=== PATIENT | male | born 1995 | race Caucasian/White ===

== ENCOUNTER 2017-11-01 16:39 | Inpatient (IN) | payer OTHER ==
[~2017-11-01] VITALS: Ht 175.3 cm; Wt 77.0 kg
[2017-11-01] MEDS ORDERED: IOHEXOL 350 MG/ML 10 ML VIAL (for RAD DIAG) IVCONTRAST ONE (16:40)
[2017-11-01 16:45] VITALS: O2SAT 97
[2017-11-01] MEDS ORDERED: MORPHINE SULFATE 4 MG/ML INJ ONE (16:48)
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
[2017-11-01 17:15] VITALS: RESP 18; O2SAT 98
[2017-11-01 17:15] LABS: AUTOMATED NEUTROPHIL # 7.5 TH/MM3 (1.8-7.7); BASOPHIL % 0.3 % (0.0-2.0); EOSINOPHIL # 0.2 TH/MM3 (0-0.4); EOSINOPHIL % 1.6 % (0.0-4.0); HEMATOCRIT 41.9 % (39.0-51.0); HEMOGLOBIN 14.9 GM/DL (13.0-17.0); LYMPH % 16.6 % (9.0-44.0); LYMPHOCYTE # 1.6 TH/MM3 (1.0-4.8); MEAN CELL VOLUME 90.2 FL (80.0-100.0); MEAN CORPUSCULAR HGB CONC 35.5 % (32.0-36.0); MEAN PLATELET VOLUME 8.5 FL (7.0-11.0); MONO % 5.8 % (0.0-8.0); MONOCYTE # 0.6 TH/MM3 (0-0.9); NEUT % 75.7 % (16.0-70.0); PLATELET COUNT 189 TH/MM3 (150-450); RED BLOOD COUNT 4.64 MIL/MM3 (4.50-5.90); WHITE BLOOD COUNT 9.9 TH/MM3 (4.0-11.0)
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
[2017-11-01 17:30] LABS: INTERNATIONAL NORMALIZED RATIO 1.1 RATIO; PROTHROMBIN TIME - PATIENT 10.9 SEC (9.8-11.6)
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
[2017-11-01 17:56] VITALS: BP 143/69; PULSE 74; RESP 16; TEMP 97.8; O2SAT 98
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
[2017-11-01 18:30] VITALS: BP 128/67; PULSE 81; RESP 17; TEMP 97.8; O2SAT 99
[2017-11-01] MEDS ORDERED: MAGNESIUM HYDROXIDE SUSP 30 ML CUP PO PRN (18:30)
[2017-11-01] MEDS ORDERED: ONDANSETRON HCL 4 MG/2 ML VIAL IV PUSH PRN (18:30)
[2017-11-01] MEDS ORDERED: ACETAMINOPHEN/HYDROcodone 325 MG/5 MG TAB PO PRN ×2 (18:30)
[2017-11-01] MEDS ORDERED: ENALAPRILAT 1.25 MG/ML VIAL IV PUSH PRN (18:30)
[2017-11-01] MEDS ORDERED: SODIUM CHLORIDE 0.9% FLUSH 10 ML FLUSH IV FLUSH PRN (18:30)
[2017-11-01] MEDS: SODIUM CHLOR 0.9% 1000 ML INJ 1,000 ML IV SCH (18:59)
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
[2017-11-01] MEDS: HYDROmorphone HCL PF 2 MG/ML VIAL IV PUSH PRN ×2 (19:04→22:17)
[2017-11-01] MEDS ORDERED: POTASSIUM CHLORIDE 20 MEQ CONTROLLED RELEASE TAB PO ONE (19:30)
[2017-11-01] MEDS: PANTOPRAZOLE SODIUM 40 MG VIAL IVP SCH (22:16)
[2017-11-01 22:42] VITALS: BP 139/64; PULSE 75; RESP 18; TEMP 99.2; O2SAT 94
[2017-11-01] MEDS: MULTIVITAMIN INJ 10 ML, THIAMINE INJ 100 MG, FOLIC ACID INJ 1 MG in SODIUM CHLORID 0.9%... IV SCH (22:48)
[2017-11-02] MEDS: HYDROmorphone HCL PF 2 MG/ML VIAL IV PUSH PRN ×3 (01:16→08:07)
[2017-11-02] MEDS ORDERED: SODIUM CHLORID 0.9% 500 ML IV PRN ×2 (04:15→13:30)
[2017-11-02] MEDS ORDERED: CHLORHEXIDINE GLUCONATE 2 % 1 PACK (2 CLOTHS) TOPICAL PRN ×2 (04:15→13:30)
[2017-11-02] MEDS ORDERED: POVIDONE IODINE 5% (ANTISEPSIS KIT) 4 APPLICATIONS EACH NARE PRN ×2 (04:15→13:30)
[2017-11-02] MEDS ORDERED: LACTATED RINGER'S 1000 ML IV PRN ×2 (04:15→13:30)
[2017-11-02] MEDS ORDERED: METOPROLOL TARTRATE 25 MG TAB PO PRN ×2 (04:15→13:30)
[2017-11-02] MEDS: SODIUM CHLOR 0.9% 1000 ML INJ 1,000 ML IV SCH (04:23)
[2017-11-02 04:43] LABS: BASOPHIL % 0.3 % (0.0-2.0); EOSINOPHIL # 0.1 TH/MM3 (0-0.4); EOSINOPHIL % 0.8 % (0.0-4.0); HEMOGLOBIN 12.9 GM/DL (13.0-17.0); LYMPH % 15.3 % (9.0-44.0); MEAN CELL VOLUME 90.4 FL (80.0-100.0); MEAN CORPUSCULAR HEMOGLOBIN 31.4 PG (27.0-34.0); MEAN CORPUSCULAR HGB CONC 34.7 % (32.0-36.0); MEAN PLATELET VOLUME 8.8 FL (7.0-11.0); MONO % 10.7 % (0.0-8.0); MONOCYTE # 0.7 TH/MM3 (0-0.9); NEUT % 72.9 % (16.0-70.0); PLATELET COUNT 171 TH/MM3 (150-450); WHITE BLOOD COUNT 6.8 TH/MM3 (4.0-11.0)
[2017-11-02 05:02] VITALS: BP 129/60; PULSE 72; RESP 18; TEMP 98.6; O2SAT 95
[2017-11-02 05:04] LABS: ALBUMIN 3.5 GM/DL (3.4-5.0); AST (GOT) 19 U/L (15-37); BICARBONATE 25.9 MEQ/L (21.0-32.0); BLOOD UREA NITROGEN 11 MG/DL (7-18); CHLORIDE 107 MEQ/L (98-107); CREATININE 0.82 MG/DL (0.60-1.30); GLOMERULAR FILTRATION RATE 81 ML/MIN (>89); GLUCOSE,RANDOM 102 MG/DL (74-106); SODIUM (NA) 139 MEQ/L (136-145)
[2017-11-02 05:08] LABS: ALKALINE PHOSPHATASE 51 U/L (45-117); ALT (GPT) 20 U/L (12-78); TOTAL BILIRUBIN ADULT 0.9 MG/DL (0.2-1.0); TOTAL PROTEIN 6.1 GM/DL (6.4-8.2)
[2017-11-02 07:47] VITALS: BP 140/62; PULSE 60; RESP 20; TEMP 99; O2SAT 97
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
[2017-11-02] MEDS ORDERED: PROPOFOL 200 MG/20 ML AMP IV ONE (12:00)
[2017-11-02] MEDS ORDERED: GLYCOPYRROLATE 1 MG/5 ML SYRINGE IV PUSH ONE (12:00)
[2017-11-02] MEDS ORDERED: NEOSTIGMINE 5 MG/5 ML SYRINGE IV PUSH ONE (12:00)
[2017-11-02] MEDS ORDERED: DEXAMETHASONE SOD PHOS 4 MG/ML VIAL IV ONE (12:00)
[2017-11-02] MEDS ORDERED: LIDOCAINE HCL 1% PF 5 ML SYRINGE OTHER ONE (12:00)
[2017-11-02] MEDS ORDERED: LACTATED RINGER'S 1000 ML INJ 1,000 ML IV ONE (12:00)
[2017-11-02] MEDS ORDERED: ROCURONIUM INJ 50 MG/5 ML SYRINGE IV PUSH ONE (12:00)
[2017-11-02] MEDS ORDERED: ONDANSETRON HCL 4 MG/2 ML VIAL IV ONE (12:00)
[2017-11-02] MEDS ORDERED: GENTAMICIN SULFATE 80 MG/2 ML VIAL ONE (13:57)
[2017-11-02] MEDS ORDERED: VANCOMYCIN HCL 1000 MG VIAL ONE (15:03)
[2017-11-02] MEDS ORDERED: ceFAZolin INJ 1,000 MG VIAL ONE (15:03)
[2017-11-02] MEDS ORDERED: diphenhydrAMINE HCL 25 MG CAP PO PRN (16:00)
--- NOTE | 2017-11-02 16:02 | PD.OP ---
cc: Lefty Lora MD Operative Report Date of Surgery: Nov 02, 2017 Preoperative Diagnosis: Displaced right femoral shaft fracture Postoperative Diagnosis: Procedure: Right femur reduction and nail fixation Anesthesia: Gen. Surgeon: Lefty Lora Musculoskeletal Physician(s): BARTOLO Amanda PA-C The surgical procedure was assisted by my physician assistant housekeeping manager. My P.A. presence was necessary throughout this case for the manipulation and positioning of the surgical extremity. My P.A. was assisting me throughout the duration of this procedure. The skill set of a physician assistant housekeeping manager was medically necessary to complete this procedure. During the surgical case the rn surgical was working at the back table and the physician assistant housekeeping manager was directly assisting me. Operation and Findings: Plan of activity: 50% weightbearing right leg Patient was seen and evaluated preoperatively. The patient has significant leg pain from right femur shaft fracture. The risk and benefits of surgery were discussed in depth with the patient to include bleeding, infection, nonunion, malunion, need for hip replacement, painful hardware, as well as medical competitions including blood clots, stroke, heart attack, and . Informed consent was obtained. Operative site was marked. Patient was brought to the operating room and placed on Nathanael table. IV sedation was administered by anesthesiologist. Timeout procedure was performed. Hip and leg were prepped with alcohol followed by Hibiclens and draped in the usual sterile fashion. IV antibiotics were given prior to incision. Procedure began with reduction of fracture. Traction was applied. The leg was manipulated to achieve reduction. Excellent reduction was achieved. Fluoroscopy was used to confirm reduction. A two inch incision was made over the anterior knee. A medial arthrotomy was created. Guidepin was placed into the distal femur and advanced into the femoral canal. Fluoroscopy confirmed appropriate guidepin placement. A opening reamer was placed over the guidepin. A long ball tipped guide pin was now placed down the femoral canal into the center of the proximal femur. The nail length was now measured. Fluoroscopy confirmed appropriate guidepin placement. Flexible reamers were now passed over the guidepin to ream the intramedullary canal. The Synthes 11 mm x 340 mm femoral nail was attached to the insertion handle. Nail was now placed over the guidepin into the femoral canal. Fluoroscopy confirmed appropriate nail placement. A small percutaneous incisions were made over the lateral thigh. Cannulas were placed through the insertion handle down to the femur. Using the insertion handle as a guide the distal interlocking screw holes were predrilled and screw lengths were measured. Appropriate length screws was now placed. Next, using perfect [place] technique two proximal interlocking screws were placed. Screw holes were predrilled and screw lengths were measured. Final fluoroscopy revealed well aligned fracture with well-placed hardware. Incision was closed with 0 Vicryl, 3-0 Vicryl and jo. Sterile dressings were applied. Patient was awakened and transferred to recovery room. Lefty Lora MD Nov 02, 2017 16:02
[2017-11-02] MEDS ORDERED: DO NOT ADM ANY ANTICOAGULANT DRUGS PRN (16:22)
[2017-11-02] MEDS ORDERED: MIDAZOLAM HCL 2 MG/2 ML VIAL ONE (16:31)
[2017-11-02] MEDS: LACTATED RINGER'S 1000 ML INJ 1,000 ML IV SCH (16:47)
[2017-11-02] MEDS ORDERED: ERGOCALCIFEROL (VIT D2) 50,000 UNIT CAP PO SCH (17:00)
[2017-11-02] MEDS ORDERED: *morphine SULFATE 4 MG/ML PERIprocedure ONLY ONE (17:53)
[2017-11-02] MEDS: CALCIUM/VITAMIN D 250 MG/125 U TAB PO SCH (18:00)
--- NOTE | 2017-11-02 18:16 | RADRPT ---
EXAM DATE/TIME: 11/02/2017 15:50 [facility] COMPARISON: FEMUR RIGHT (AP & LAT/2VWS), November 01, 2017, 16:41. INDICATIONS : ORIF of the right femur. MEDICAL HISTORY : Non-responsive SURGICAL HISTORY : Non-responsive ENCOUNTER: Initial ACUITY: 2 days PAIN SCORE: Non-responsive. LOCATION: Right femur FINDINGS: 8 images are recorded digitally in the operating room using C-arm during placement of an intramedulla ry right femur with proximal and distal intercalated screws. CONCLUSION: Intraoperative images. Gunnar Chu MD on November 02, 2017 at 18:14 Board Certified Radiologist. This report was verified electronically.
[2017-11-02] MEDS: PANTOPRAZOLE SODIUM 40 MG VIAL IVP SCH (19:29)
[2017-11-02 20:05] VITALS: BP 151/67; PULSE 82; RESP 16; TEMP 99; O2SAT 96
[2017-11-02] MEDS: MULTIVITAMIN INJ 10 ML, THIAMINE INJ 100 MG, FOLIC ACID INJ 1 MG in SODIUM CHLORID 0.9%... IV SCH (21:29)
[2017-11-02] MEDS: ACETAMINOPHEN/HYDROcodone 325 MG/10 MG TAB PO PRN (22:14)
[2017-11-02] MEDS: ceFAZolin 2 GM PREMIX 50 ML IV SCH (23:58)
[2017-11-03 00:40] VITALS: BP 131/59; PULSE 84; RESP 16; TEMP 98.4; O2SAT 98
[2017-11-03] MEDS: LACTATED RINGER'S 1000 ML INJ 1,000 ML IV SCH ×3 (02:00→20:09)
[2017-11-03] MEDS: VANCOMYCIN INJ 1,000 MG in SODIUM CHLOR 0.9% 250 ML INJ 250 ML IV SCH ×2 (03:11→14:45)
[2017-11-03 03:50] VITALS: BP 125/58; PULSE 76; RESP 16; TEMP 98.5; O2SAT 98
[2017-11-03] MEDS: ENOXAPARIN SODIUM 40 MG/0.4 ML SYRINGE SQ SCH (05:20)
[2017-11-03] MEDS: ceFAZolin 2 GM PREMIX 50 ML IV SCH ×2 (05:20→13:36)
[2017-11-03] MEDS: ACETAMINOPHEN/HYDROcodone 325 MG/10 MG TAB PO PRN ×4 (05:20→18:01)
--- NOTE | 2017-11-03 06:43 | PD.ORT.PN ---
Subjective Subjective Remarks POD 1 s/p IMN right femur paitent states he is doing well. reports no pain at all and feels good Objective Vitals Vital Signs Date Time Temp Pulse Resp B/P (MAP) Pulse Ox O2 Delivery O2 Flow Rate FiO2 11/03/17 04:55 21 11/03/17 03:50 98.5 76 16 125/58 (80) 98 11/03/17 00:40 98.4 84 16 131/59 (83) 98 11/02/17 20:05 99.0 82 16 151/67 (95) 96 11/02/17 17:45 98.5 61 22 139/66 (90) 97 Room Air 11/02/17 17:00 61 22 134/55 (81) 94 Room Air 11/02/17 16:45 70 22 135/60 (85) 94 Room Air 11/02/17 16:30 60 22 125/57 (79) 97 Room Air 11/02/17 16:23 98.5 65 20 133/63 (86) 99 Nasal Cannula 2 11/02/17 11:58 20 11/02/17 07:47 99.0 60 20 140/62 (88) 97 I/O 11/02/17 11/02/17 11/02/17 11/03/17 11/03/17 11/03/17 07:00 15:00 23:00 07:00 15:00 23:00 Intake Total 1511.2 ml 1130 ml 50 ml Output Total 500 ml 100 ml Balance 1511.2 ml -500 ml 1030 ml 50 ml Intake Oral 0 ml 30 ml IV Total 1511.2 ml 100 ml 50 ml Other 1000 ml Output Urine Total 500 ml Estimated Blood Loss 100 ml # Voids 3 0 # Bowel Movements 0 Result Diagram: 11/02/17 0410 11/02/17 0410 Imaging Last 24 hours Impressions Thoracic Spine CT 11/01/171648 Signed Impressions: Service Date/Time: Wednesday, November 01, 2017 17:02 - CONCLUSION: Normal examination. Gunnar Crandall Jr., MD Pelvis X-Ray 11/01/171648 Signed Impressions: Service Date/Time: Wednesday, November 01, 2017 16:41 - CONCLUSION: No fracture. Fernando Charles MD Lumbar Spine CT 11/01/171648 Signed Impressions: Service Date/Time: Wednesday, November 01, 2017 17:02 - CONCLUSION: Normal examination. Gunnar Crandall Jr., MD Head CT 11/01/171648 Signed Impressions: Service Date/Time: Wednesday, November 01, 2017 16:56 - CONCLUSION: No acute disease. Gunnar Crandall Jr., MD Chest X-Ray 11/01/171648 Signed Impressions: Service Date/Time: Wednesday, November 01, 2017 16:41 - CONCLUSION: Limited study. No acute abnormality. Gunnar Crandall Jr., MD Chest CT 11/01/171648 Signed Impressions: Service Date/Time: Wednesday, November 01, 2017 17:02 - CONCLUSION: Negative exam. Lungs are clear. Mediastinal vasculature is intact. Fernando Charles MD Cervical Spine CT 11/01/171648 Signed Impressions: Service Date/Time: Wednesday, November 01, 2017 16:56 - CONCLUSION: No fracture. Fernando Charles MD Abdomen/Pelvis CT 11/01/171648 Signed Impressions: Service Date/Time: Wednesday, November 01, 2017 17:02 - CONCLUSION: 1. Levoscoliosis of the thoracolumbar spine which may be positional. 2. Otherwise negative. Abdominal and pelvic viscera are intact with no acute injury. Fernando Charles MD Objective Remarks RLE: dressings clean and dry. intact. NVI. Assessment & Plan Assessment and Plan 1) Right Femoral Shaft Fx s/p IMN - POD 1 -50%WB RLE -daily dressing changes POD 2 -work with therapy today. if doing well, plan for DC home tomorrow -f/u with Manisha or PA in 2 weeks -Scripts on chart Vinay Tadeo/[employer] PA Nov 03, 2017 06:43
[2017-11-03] MEDS ORDERED: WALKER/ADULT/FO1 MIS (06:44)
[2017-11-03] MEDS ORDERED: COLA100C5 PO (07:20)
[2017-11-03] MEDS ORDERED: MAGN30S PO (07:20)
[2017-11-03 07:36] VITALS: BP 113/56; PULSE 92; RESP 18; TEMP 96.9; O2SAT 98
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
[2017-11-03] MEDS: CALCIUM/VITAMIN D 250 MG/125 U TAB PO SCH ×3 (10:13→18:01)
[2017-11-03] MEDS: CHOLECALCIFEROL (VIT D3) 1000 UNIT TAB PO SCH (10:13)
[2017-11-03] MEDS: DOCUSATE SODIUM 50 MG/SENNA 8.6 MG TAB PO SCH ×2 (10:13→20:09)
[2017-11-03] MEDS: ASCORBIC ACID 500 MG TAB PO SCH (10:13)
[2017-11-03 11:50] VITALS: BP 102/68; PULSE 80; RESP 18; TEMP 96.1; O2SAT 99
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
[2017-11-03 14:45] VITALS: BP 142/64; PULSE 77; RESP 18; TEMP 97.5; O2SAT 98
[2017-11-03] MEDS ORDERED: NEOMYCIN/POLYMYXIN/BACITRACIN OINT 15 GM TUBE TOPICAL PRN (19:00)
[2017-11-03] MEDS ORDERED: CHLORHEXIDINE GLUCONATE 4% SOLN 120 ML BTL TOPICAL SCH (19:00)
[2017-11-03 20:00] VITALS: BP 122/65; PULSE 89; RESP 16; TEMP 99.6; O2SAT 98
[2017-11-03] MEDS: MULTIVITAMIN INJ 10 ML, THIAMINE INJ 100 MG, FOLIC ACID INJ 1 MG in SODIUM CHLORID 0.9%... IV SCH (20:08)
[2017-11-03] MEDS: PANTOPRAZOLE SODIUM 40 MG VIAL IVP SCH (20:09)
[2017-11-04] VITALS: BP 114/57; PULSE 86; RESP 15; TEMP 98.3; O2SAT 98
[2017-11-04] MEDS: ENOXAPARIN SODIUM 40 MG/0.4 ML SYRINGE SQ SCH (03:49)
[2017-11-04] MEDS: ACETAMINOPHEN/HYDROcodone 325 MG/10 MG TAB PO PRN ×3 (03:50→13:21)
[2017-11-04 04:00] VITALS: BP 121/45; PULSE 74; RESP 15; TEMP 96.2; O2SAT 98
[2017-11-04 04:01] LABS: HEMATOCRIT 24.7 % (39.0-51.0); HEMOGLOBIN 8.8 GM/DL (13.0-17.0)
--- NOTE | 2017-11-04 07:12 | PD.ORT.PN ---
Subjective Subjective Remarks Doing well. Objective Vitals Vital Signs Date Time Temp Pulse Resp B/P (MAP) Pulse Ox O2 Delivery O2 Flow Rate FiO2 11/04/17 04:00 96.2 74 15 121/45 (70) 98 11/04/17 00:00 98.3 86 15 114/57 (76) 98 11/03/17 20:00 99.6 89 16 122/65 (84) 98 11/03/17 14:45 97.5 77 18 142/64 (90) 98 11/03/17 11:50 96.1 80 18 102/68 (79) 99 11/03/17 07:36 96.9 92 18 113/56 (75) 98 I/O 11/03/17 11/03/17 11/03/17 11/04/17 11/04/17 11/04/17 07:00 15:00 23:00 07:00 15:00 23:00 Intake Total 770 ml 950 ml 800 ml Output Total 950 ml 800 ml 400 ml 400 ml Balance -180 ml 150 ml 400 ml -400 ml Intake Oral 720 ml 950 ml 800 ml IV Total 50 ml Output Urine Total 950 ml 800 ml 400 ml 400 ml # Bowel Movements 0 0 Result Diagram: 11/04/17 0329 11/02/17 0410 Imaging Last 24 hours Impressions Thoracic Spine CT 11/01/171648 Signed Impressions: Service Date/Time: Wednesday, November 01, 2017 17:02 - CONCLUSION: Normal examination. Gunnar Crandall Jr., MD Pelvis X-Ray 11/01/171648 Signed Impressions: Service Date/Time: Wednesday, November 01, 2017 16:41 - CONCLUSION: No fracture. Fernando Charles MD Lumbar Spine CT 11/01/171648 Signed Impressions: Service Date/Time: Wednesday, November 01, 2017 17:02 - CONCLUSION: Normal examination. Gunnar Crandall Jr., MD Head CT 11/01/171648 Signed Impressions: Service Date/Time: Wednesday, November 01, 2017 16:56 - CONCLUSION: No acute disease. Gunnar Crandall Jr., MD Chest X-Ray 11/01/171648 Signed Impressions: Service Date/Time: Wednesday, November 01, 2017 16:41 - CONCLUSION: Limited study. No acute abnormality. Gunnar Crandall Jr., MD Chest CT 11/01/171648 Signed Impressions: Service Date/Time: Wednesday, November 01, 2017 17:02 - CONCLUSION: Negative exam. Lungs are clear. Mediastinal vasculature is intact. Fernando Charles MD Cervical Spine CT 11/01/171648 Signed Impressions: Service Date/Time: Wednesday, November 01, 2017 16:56 - CONCLUSION: No fracture. Fernando Charles MD Abdomen/Pelvis CT 11/01/171648 Signed Impressions: Service Date/Time: Wednesday, November 01, 2017 17:02 - CONCLUSION: 1. Levoscoliosis of the thoracolumbar spine which may be positional. 2. Otherwise negative. Abdominal and pelvic viscera are intact with no acute injury. Fernando Charles MD Objective Remarks RLE: dressings clean and dry. intact. NVI. Assessment & Plan Assessment and Plan 1) Right Femoral Shaft Fx s/p IMN - POD 2 -50%WB RLE -daily dressing changes POD 2 -work with therapy today. if doing well, plan for DC home today -f/u with Manisha or THUAN in 2 weeks -Scripts on chart Garrett Poon Jr. Nov 04, 2017 07:12
--- NOTE | 2017-11-04 07:24 | HHI.FF ---
Face to Face Verification Diagnosis: (1) Closed fracture of right distal femur Physical Therapy Order: Evaluate and Treat, Improve ambulation, Strength and gait training Home Health Nursing Order: Medical education Signs/symptoms of disease process Medication education-adverse effect Nursing assessment with vital signs I have seen patient Tyree [email or web address] on 11/04/17. My clinical findings support the need for the requested home health care services because: Ltd mobility - disease progression Limited ability to care for self High risk of falls Infection w/ risk of complications I certify that my clinical findings support that this patient is homebound because: Post-op weakness Unsteady gait/balance Unsafe to leave home unassisted [id number] bed/chair Unable to use public transportation Radha Trinidad Nov 04, 2017 07:24
[2017-11-04 08:00] VITALS: BP 121/41; PULSE 59; RESP 20; TEMP 98.7; O2SAT 98
[2017-11-04] MEDS: LACTATED RINGER'S 1000 ML INJ 1,000 ML IV SCH ×2 (08:00→09:42)
[2017-11-04] MEDS: DOCUSATE SODIUM 50 MG/SENNA 8.6 MG TAB PO SCH (09:26)
[2017-11-04] MEDS: ASCORBIC ACID 500 MG TAB PO SCH (09:26)
[2017-11-04] MEDS: CALCIUM/VITAMIN D 250 MG/125 U TAB PO SCH ×2 (09:26→13:21)
[2017-11-04] MEDS: CHOLECALCIFEROL (VIT D3) 1000 UNIT TAB PO SCH (09:28)
== END 2017-11-04 14:06 | disposition home or self-care (01) | DRG 482 ==
LOC: NEPI 16:39 → NEDA 19:20 → EDBD 19:20 → NEPFCDU 21:48 → N06B 11-02 16:15 → N06A 11-02 18:05
PROVIDERS: ADMIT Orthopaedic Surgery Orthopaedic Trauma; ATTEND Orthopaedic Surgery Orthopaedic Trauma
PROC: 0QS836Z Reposition Right Femoral Shaft with Intramedullary Internal Fixation Device, Percutaneous Approach (ICD-10-PCS; principal; 2017-11-02 14:38)
DX: S72.351A Displaced comminuted fracture of shaft of right femur, initial encounter for closed fracture (principal); V48.1XXA Car passenger injured in noncollision transport accident in nontraffic accident, initial encounter; Y92.410 Unspecified street and highway as the place of occurrence of the external cause
CPT/HCPCS: 70450; 71045; 71260; 72125; 72129; 72132; 72170; 73552; 74177; 76000; 80048; 80053; 85014; 85018; 85025; 85610; 85730; 86850; 86900; 86901; 94150; 96374; 99291; C1713; C9113; E0113; G0390; J0690; J1100; J1170; J1580; J1650; J2250; J2270; J2405; J2710; J3010; J3370; J3411; J7030; J7040; J7050; J7120; Q9967